=== PATIENT | male | born 1995 | race Caucasian/White ===

== ENCOUNTER 2018-10-16 21:06 | Emergency (ER) | payer BC, OTHER ==
[~2018-10-16] VITALS: Ht 177.8 cm; Wt 88.0 kg
--- NOTE | 2018-10-16 21:44 | ED General ---
General Chief Complaint: Laceration Stated Complaint: LAC TO RT PINKY FINGER/INTOXICATED Nursing Sepsis Screen: No Definite Risk Source of Information: Patient, Family Exam Limitations: Intoxication History of Present Illness Date Seen by Provider: October 16, 2018 Time Seen by Provider: 21:28 This is a 23-year-old male who presents with a right fifth digit laceration that occurred shortly prior to arrival. He states that he cut it on a clean knife. He is not sure when his last tetanus shot was. He denies any other injuries. He has constant mild nonradiating sharp pain worse with direct palpation or movement. No weakness numbness or tingling. Allergies and Home Medications Allergies Coded Allergies: No Known Drug Allergies (Unverified , 10/16/18) Home Medications Cephalexin 500 Mg Tablet, 500 MG PO QID Prescribed by: QUINCY HOROWITZ on 10/16/18 [id number] Patient Home Medication List Home Medication List Reviewed: Yes Review of Systems Review of Systems Constitutional: no symptoms reported EENTM: no symptoms reported Respiratory: no symptoms reported Cardiovascular: no symptoms reported Gastrointestinal: no symptoms reported Genitourinary: no symptoms reported Musculoskeletal: no symptoms reported Skin: see HPI Psychiatric/Neurological: No Symptoms Reported Hematologic/Lymphatic: No Symptoms Reported Immunological/Allergic: no symptoms reported Past Lvlorct-Seazti-Bdyzln Hx Past Med/Social Hx: Reviewed Nursing Past Med/Soc Hx Patient Social History Recent Foreign Travel: No Contact w/Someone Who Travel: No Recent Infectious Disease Expo: No Physical Abuse: No Sexual Abuse: No Mistreated: No Fear: No Physical Exam Vital Signs Vital Signs - First Documented 10/16/18 21:12 Temp 98.2 Pulse 70 Resp 22 B/P (MAP) 124/88 (100) Pulse Ox 99 O2 Delivery Room Air Capillary Refill : Less Than 3 Seconds Height, Weight, BMI Height: 5'10.00" Weight: 194lbs. oz. 87.675722xi; BMI Method:Stated General Appearance: No Apparent Distress (smells of alcohol, awake but slightly slurred speech) HEENT: Moist Mucous Membranes Neck: Non Tender (head is also nontender), Supple Respiratory: Chest Non Tender, Lungs Clear Cardiovascular: Regular Rate, Rhythm, Normal Peripheral Pulses Gastrointestinal: Non Tender, Soft Back: Normal Inspection, No Vertebral Tenderness Extremity: Other (there is no tenderness in the extremities. There is an approximately 1 cm laceration over the palmar aspect of the right fifth digit overlying the PIP, patient has 5 out of 5 strength with flexion and extension at each of the joints of the affected digit) Neurologic/Psychiatric: No Motor/Sensory Deficits Skin: Warm/Dry Procedures/Interventions Wound Location: Upper Extremities (R fifth digit) Wound's Depth, Shape: flap, sub Q Wound Explored: clean Betadine Prep?: Yes Anesthesia: 1% Lidocaine (digital block) Volume Anesthetic (ccs): 5 Suture: Ethlion Suture Size: 4-0 Number of Sutures: 3 Layer Closure?: 1 Sterile Dressing Applied?: Yes Progress Patient provided verbal consent. Wound was prepped with Betadine and allowed to dry. 2-1/2 cc were infiltrated into each side of the base of the digit for digital block. This achieved excellent analgesia. Patient was then taken to the sink where his wound and his entire hand and wrist were washed thoroughly with soap and water. The wound was then prepped with alcohol, 3 simple interrupted sutures with 4-0 nylon were placed with good wound closure and hemostasis. Patient tolerated the procedure very well with no observed complications. The wound was covered with a nonadherent sterile dressing. Normal cap refill after placement of dressing. Patient was instructed to return in 7 days for suture removal or to follow-up with his doctor for this, and this was physically written onto his discharge instructions. Progress/Results/Core Measures Suspected Sepsis Recent Fever Within 48 Hours: No Infection Criteria Present: None New/Unexplained Altered Menta: No Sepsis Screen: No Definite Risk SIRS Temperature:98.2 Pulse: 70 Respiratory Rate: 22 Blood Pressure 124 /88 Mean: 100 Results/Orders My Orders Orders - QUINCY HOROWITZ DO Lidocaine 1% Inj 20 Ml (Xylocaine 1% Inj (10/16/18 21:45) Cephalexin Capsule (Keflex Capsule) (10/16/18 23:00) Medications Given in ED Current Medications Medications Dose Ordered Sig/Steph Route Start Time Stop Time Status Last Admin Dose Admin Cephalexin HCl 500 mg ONCE ONCE PO 10/16/18 23:00 10/16/18 23:01 DC 10/16/18 23:00 500 MG Lidocaine HCl 20 ml ONCE ONCE INJ 10/16/18 21:45 10/16/18 21:46 DC 10/16/18 22:45 20 ML Vital Signs/I&O 10/16/18 10/16/18 21:12 23:01 Temp 98.2 98.2 Pulse 70 76 Resp 22 20 B/P (MAP) 124/88 (100) 126/83 (97) Pulse Ox 99 97 O2 Delivery Room Air Room Air Capillary Refill : Less Than 3 Seconds Blood Pressure Mean: 100 Progress Note : Progress Note Patient presents with an uncomplicated right fifth digit laceration, no evidence of tendon involvement, no evidence of bony involvement, tetanus was updated, wound was washed thoroughly and closed using sterile technique. Patient will return in 7 days for suture removal. I did give a dose of Keflex in the emergency department and prescribed a prophylactic dose for 5 days. Departure Impression Primary Impression: Finger laceration Qualified Codes: S61.216A - Laceration without foreign body of right little finger without damage to nail, initial encounter Disposition: 01 HOME, SELF-CARE Condition: Stable Departure-Patient Inst. Referrals: SELF,BOBBI HANSON (PCP/Family) Primary Care Physician Patient Instructions: Laceration Repair With Stitches (DC) Scripts Cephalexin (Cephalexin) 500 Mg Tablet 500 MG PO QID for 5 Days, #20 TAB 0 Refills Prov: QUINCY HOROWITZ DO 10/16/18 QUINCY HOROWITZ DO October 16, 2018 21:44
[2018-10-16] MEDS ORDERED: LIDOCAINE 1% INJ 20 ML 20 ML VIAL INJ ONE (21:45)
--- NOTE | 2018-10-16 22:18 | NUR ---
DOCTOR IN ROOM WITH THE PATIENT AT THIS TIME.
--- NOTE | 2018-10-16 22:39 | NUR ---
Note ata in ED - 10/16/18 at 2314 by KAREEN PT. HAS APNEA. HE WAS PLACED ON A FACE MASK WITH 5 LITERS 02 AND HIS SATS WENT BACK UP TO 97. HIS SATS DROPPED TO 88% ON 5 LITERS PER NC.
[2018-10-16] MEDS ORDERED: CEPH500T PO (22:51)
[2018-10-16] MEDS ORDERED: CEPHALEXIN 250 MG (KEFLEX) CAP PO ONE (23:00)
[2018-10-16 23:01] VITALS: BP 126/83
== END 2018-10-16 23:03 | disposition home or self-care (01) ==
LOC: ER FS 21:08
DX: S61.316A Laceration without foreign body of right little finger with damage to nail, initial encounter (principal); W26.0XXA Contact with knife, initial encounter

== ENCOUNTER 2018-10-23 06:26 | Emergency (ER) | payer BC ==
[~2018-10-23] VITALS: Ht 172.7 cm; Wt 68.0 kg
[~2018-10-23 06:26] MED LIST: CEPH500T PO
--- OUTSIDE RECORDS SUMMARY | 2018-10-23 06:31 | XMS REPORT | Continuity of Care Document ---
Author Organization Unknown Address Unknown Allergies There is no data. Medications There is no data. Problems There is no data. Procedures There is no data. Results There is no data. Encounters ACCT No. Visit Date/Time Discharge Status Pt. Type Provider Facility Loc./Unit Complaint [id number] 10/18/2018 11:00:00 10/18/2018 23:59:59 CLS Outpatient [facility]
[2018-10-23 06:45] VITALS: BP 143/85
== END 2018-10-23 06:45 | disposition home or self-care (01) ==
LOC: EDUNIT# 06:26 → ER FS 06:28
DX: S61.217D Laceration without foreign body of left little finger without damage to nail, subsequent encounter (principal); X58.XXXD Exposure to other specified factors, subsequent encounter